=== PATIENT | male | born 1980 | race Caucasian/White ===

== ENCOUNTER 2019-05-26 10:46 | Emergency (ER) | payer OTHER ==
[~2019-05-26] VITALS: Ht 172.7 cm; Wt 81.7 kg
[2019-05-26 10:46] VITALS: BP 133/77
[2019-05-26 12:06] LABS: ABSOLUTE NEUTROPHILS 4.1 thou/uL (1.4-8.2); BASOPHILS 0.8 % (0.0-2.0); EOSINOPHILS 1.5 % (0.0-3.0); HEMOGLOBIN 14.6 gm/dL (14.0-18.0); LYMPHOCYTES 25.8 % (24.0-44.0); MCHC 33.9 g/dL (28.0-37.0); MCV 94.6 fL (80.0-100.0); MONOCYTES 9.8 % (1.0-8.0); PLATELET COUNT 244 thou/uL (150-400); POLYS 62.1 % (36.0-66.0); RBC 4.55 mil/uL (4.50-6.00); RDW 12.9 % (10.5-14.5); WBC 6.6 thou/uL (4.0-11.0)
[2019-05-26 12:17] LABS: CALCIUM 9.4 mg/dL (8.5-10.1); CREATININE 0.9 mg/dL (0.7-1.3)
[2019-05-26 12:21] LABS: URIC ACID* 3.9 mg/dL (2.6-7.2)
[2019-05-26] MEDS ORDERED: IBUPROFEN 800800 M1 PO (12:43)
== END 2019-05-26 12:54 | disposition home or self-care (01) ==
LOC: ER 10:46
PROVIDERS: Physician Assistant
DX: M71.572 Other bursitis, not elsewhere classified, left ankle and foot (principal); I10 Essential (primary) hypertension; E78.00 Pure hypercholesterolemia, unspecified; K21.9 Gastro-esophageal reflux disease without esophagitis